=== PATIENT | female | born 1970 | race Caucasian/White ===

== ENCOUNTER 2019-03-17 13:39 | Emergency (ER) | payer OTHER ==
[~2019-03-17] VITALS: Ht 175.3 cm; Wt 77.1 kg
[2019-03-17 13:51] VITALS: BP 145/97; Ht 175.3 cm; Wt 77.1 kg
== END 2019-03-17 14:25 | disposition other institution (70) ==
LOC: ED 13:39
DX: Z02.89 Encounter for other administrative examinations (principal)